=== PATIENT | female | born 1975 | race African-American/Black ===

== ENCOUNTER 2022-02-22 17:00 | Emergency (ER) | payer MEDICAID ==
[~2022-02-22] VITALS: Ht 154.9 cm; Wt 142.0 kg
[2022-02-22] MEDS ORDERED: METHYLPREDNISOLONE SOD SUCC 125 MG/2 ML VIAL IV STA (18:27)
[2022-02-22] MEDS ORDERED: IPRATROPIUM BROMIDE (0.02%) 0.5MG/2.5ML NEB HHN STA ×2 (18:27→21:13)
[2022-02-22 18:44] LABS: BASOPHILS % 1.3 % (0.0-2.0); EOSINOPHILS % 1.6 % (0.0-5.0); HEMATOCRIT. 41.3 % (36.0-48.0); HEMOGLOBIN. 14.1 g/dL (12.0-16.0); LYMPHOCYTES % 32.8 % (20.0-50.0); MEAN CORPUSCULAR HEMOGLOBIN 34.1 pg (28.0-32.0); MEAN CORPUSCULAR VOLUME 99.7 fL (81.0-99.0); MEAN PLATELET VOLUME 6.6 fl (7.4-10.4); MONOCYTES % 10.4 % (2.0-8.0); NEUTROPHILS % 53.9 % (40.0-76.0); PLATELET 357 x1000/uL (130-400); RED BLOOD CELL COUNT 4.14 mill/uL (4.2-5.4); RED CELL DISTRIBUTION WIDTH 14.5 % (11.6-14.6)
[2022-02-22 18:52] LABS: CHLORIDE 105 mEq/L (98-107)
[2022-02-22] MEDS: ALBUTEROL (0.083%) 2.5MG/3ML NEB HHN SCH ×4 (19:10→22:33)
[2022-02-22] MEDS ORDERED: ACETAMINOPHEN 325MG TABLET PO ONE (21:15)
[2022-02-22] MEDS ORDERED: ACETAMINOPHEN 325MG TABLET PO NR (23:00)
[2022-02-22] MEDS ORDERED: METHYLPREDNISOLONE SOD SUCC 125 MG/2 ML VIAL IV NR (23:00)
[2022-02-22] MEDS ORDERED: P50 MT (23:24)
[2022-02-22 23:30] VITALS: BP 104/56
== END 2022-02-23 02:28 | disposition home or self-care (01) ==
LOC: ER 17:00
DX: J45.901 Unspecified asthma with (acute) exacerbation (principal); E11.9 Type 2 diabetes mellitus without complications; I10 Essential (primary) hypertension
CPT/HCPCS: 36415; 71045; 80053; 83880; 84484; 85025; 93005; 94640; 96374; 99285; J2930; Z7610